=== PATIENT | male | born 1985 | race Caucasian/White ===

== ENCOUNTER 2020-10-09 11:14 | Emergency (ER) | payer OTHER ==
[~2020-10-09] VITALS: Ht 185.4 cm; Wt 90.7 kg
[2020-10-09 11:25] VITALS: BP 141/83
[2020-10-09] MEDS ORDERED: TIZANIDINE HCL2 M1 PO (11:42)
[2020-10-09] MEDS ORDERED: NAPROSYN500 MG PO (11:42)
== END 2020-10-09 12:04 | disposition home or self-care (01) ==
LOC: ER 11:14
DX: M54.5 Low back pain (principal)

== ENCOUNTER 2020-10-26 11:25 | Emergency (ER) | payer OTHER ==
[~2020-10-26] VITALS: Ht 185.4 cm; Wt 90.7 kg
[~2020-10-26 11:25] MED LIST: NAPROSYN500 MG PO; TIZANIDINE HCL2 M1 PO
[2020-10-26 11:29] VITALS: BP 130/84
[2020-10-26] MEDS ORDERED: ZANAFLEX4 MG PO (12:28)
[2020-10-26] MEDS ORDERED: MEDROLDOSEPACK PO (12:28)
== END 2020-10-26 12:34 | disposition home or self-care (01) ==
LOC: ER 11:25
DX: M54.5 Low back pain (principal)

== ENCOUNTER 2021-03-02 11:31 | Emergency (ER) | payer OTHER ==
[~2021-03-02] VITALS: Ht 185.4 cm; Wt 90.7 kg
[~2021-03-02 11:31] MED LIST changes: +MEDROLDOSEPACK PO; +ZANAFLEX4 MG PO
[2021-03-02] MEDS ORDERED: EXCEDRIN MIGRA1 EAC1 PO (11:52)
[2021-03-02] MEDS ORDERED: FLEXERIL PO (12:40)
[2021-03-02 13:10] VITALS: BP 116/80
== END 2021-03-02 13:10 | disposition home or self-care (01) ==
LOC: ER 11:31
DX: S60.211A Contusion of right wrist, initial encounter (principal); S30.0XXA Contusion of lower back and pelvis, initial encounter; S40.011A Contusion of right shoulder, initial encounter; Z79.82 Long term (current) use of aspirin; Z79.891 Long term (current) use of opiate analgesic; Z79.899 Other long term (current) drug therapy; W00.0XXA Fall on same level due to ice and snow, initial encounter; Y93.89 Activity, other specified; Y92.89 Other specified places as the place of occurrence of the external cause; Y99.8 Other external cause status

== ENCOUNTER 2021-07-03 02:39 | Inpatient (IN) | payer OTHER ==
[~2021-07-03] VITALS: Ht 185.4 cm; Wt 99.8 kg
[~2021-07-03 02:39] MED LIST changes: +EXCEDRIN MIGRA1 EAC1 PO; +FLEXERIL PO
[2021-07-03 03:30] LABS: ABSOLUTE NEUTROPHILS 7.7 thou/uL (1.4-8.2); BASOPHILS 0.8 % (0.0-2.0); EOSINOPHILS 1.5 % (0.0-3.0); HEMATOCRIT 42.6 % (42.0-52.0); HEMOGLOBIN 15.3 gm/dL (14.0-18.0); LYMPHOCYTES 25.1 % (24.0-44.0); MCH 33.4 pg (26.0-34.0); MCHC 35.9 g/dL (28.0-37.0); MCV 93.2 fL (80.0-100.0); MONOCYTES 10.6 % (1.0-8.0); PLATELET COUNT 274 thou/uL (150-400); RBC 4.57 mil/uL (4.50-6.00); RDW 12.6 % (10.5-14.5); WBC 12.4 thou/uL (4.0-11.0)
[2021-07-03 03:58] LABS: CALCIUM 8.9 mg/dL (8.5-10.1); POTASSIUM 3.7 mmol/L (3.5-5.1)
[2021-07-03 04:05] LABS: ALBUMIN 3.9 g/dL (3.4-5.0); TOTAL BILIRUBIN 0.4 mg/dL (0.2-1.0); TOTAL PROTEIN 7.7 g/dL (6.4-8.2)
[2021-07-03 04:29] VITALS: BP 115/63
--- NOTE | 2021-07-03 07:37 | EKG ---
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: SHANIQUA : 1985 Requested By: Emily Miles Order Number: [id number] MD: José Miguel Rogel Measurements Intervals [place] Rate: 99 P: 39 VA: 157 QRS: 37 QRSD: 105 T: 58 QT: 350 QTc: 450 Interpretive Statements Sinus rhythm No significant abnormality No previous ECG available for comparison Electronically Signed On 07-03-2021 7:37:26 GRISTMILL OPERATOR by José Miguel Rogel [email or web address] <ELECTRONICALLY SIGNED> By: José Miguel Rogel MD, [facility] 07/03/21 0737 025 025 José Miguel Rogel MD, FACC /EPI
--- NOTE | 2021-07-03 18:04 | NUR ---
35 year old male presents to the ED on 07-03-21 with sudden onset of abdominal pain with nausea. The patient has been admitted with Dilated distal terminal ileum the level of the ileocecal valve, nonspecific and may represent partial obstruction of the terminal ileum/ileocecal valve, NPO and general surgery consult who recommends enemas and bowel regime. Pt noted as vaccinated and per ID NOW in the ED is listed as negative. The patient is listed as A&O x4 and lists Kia Hedrick S/O at [phone] as person of notification. CM will await discharge needs to be identified by medical team and will follow.
[2021-07-03 23:00] VITALS: BP 114/76
[2021-07-04 03:10] LABS: ABSOLUTE NEUTROPHILS 4.6 thou/uL (1.4-8.2); BASOPHILS 0.4 % (0.0-2.0); EOSINOPHILS 2.2 % (0.0-3.0); HEMATOCRIT 40.7 % (42.0-52.0); HEMOGLOBIN 14.1 gm/dL (14.0-18.0); LYMPHOCYTES 29.7 % (24.0-44.0); MCH 32.6 pg (26.0-34.0); MCHC 34.6 g/dL (28.0-37.0); MCV 94.3 fL (80.0-100.0); MONOCYTES 8.4 % (1.0-8.0); PLATELET COUNT 225 thou/uL (150-400); POLYS 59.3 % (36.0-66.0); RBC 4.32 mil/uL (4.50-6.00); RDW 12.7 % (10.5-14.5); WBC 7.7 thou/uL (4.0-11.0)
[2021-07-04 03:51] LABS: CALCIUM 8.5 mg/dL (8.5-10.1); CREATININE 0.8 mg/dL (0.7-1.3); MAGNESIUM 1.8 mg/dL (1.8-2.4); POTASSIUM 3.9 mmol/L (3.5-5.1)
[2021-07-04 04:00] VITALS: BP 103/56
[2021-07-04 09:04] VITALS: BP 157/81
[2021-07-04] MEDS ORDERED: COLACE100 MG PO (14:27)
[2021-07-04 14:50] VITALS: BP 157/81
[2021-07-04 15:27] VITALS: BP 145/85
== END 2021-07-04 18:26 | disposition home or self-care (01) | DRG 390 ==
LOC: ER 02:39 → EROBS 06:08
PROVIDERS: Emergency Medicine; Nurse Practitioner; ADMIT Hospitalist; ATTEND Hospitalist
DX: K56.609 Unspecified intestinal obstruction, unspecified as to partial versus complete obstruction (principal); F17.210 Nicotine dependence, cigarettes, uncomplicated; K80.50 Calculus of bile duct without cholangitis or cholecystitis without obstruction; K59.00 Constipation, unspecified; K76.0 Fatty (change of) liver, not elsewhere classified; Z20.822 Contact with and (suspected) exposure to COVID-19; Z71.6 Tobacco abuse counseling; Z79.899 Other long term (current) drug therapy

== ENCOUNTER 2021-07-31 13:46 | Emergency (ER) | payer OTHER ==
[~2021-07-31] VITALS: Ht 185.4 cm; Wt 99.8 kg
[~2021-07-31 13:46] MED LIST changes: +COLACE100 MG PO
[2021-07-31 14:01] VITALS: BP 118/72
== END 2021-07-31 15:31 | disposition home or self-care (01) ==
LOC: ER 13:46
DX: J06.9 Acute upper respiratory infection, unspecified (principal); Z20.822 Contact with and (suspected) exposure to COVID-19; R05.9 Cough, unspecified; F17.210 Nicotine dependence, cigarettes, uncomplicated